=== PATIENT | female | born 2000 | race Hispanic/Latino ===

== ENCOUNTER 2023-05-20 13:39 | Emergency (ER) | payer SELFPAY ==
[2023-05-20] VITALS (10 sets, daily range): BP systolic 120–155; BP diastolic 64–93; PULSE 69–100; RESP 14–18; TEMP 36.6–36.7; O2SAT 92–98; BMI 38.0
[2023-05-20] MEDS: Ondansetron 4 MG/2 ML Vial IV (14:32)
[2023-05-20] MEDS: fentaNYL 100 MCG/2 ML Ampul 50 MCG IV (14:33)
[2023-05-20 14:51] LABS: Absolute Neutrophil Count 11.2 X10^3/uL (2.0-7.7); Basophil# 0.02 X10^3/uL; Basophil% 0.2 % (0-1); Hematocrit 35.9 % (37-47); Hemoglobin 10.6 g/dL (12.0-15.0); Lymphocyte % 5.7 % (19-41); Mean Corp Hgb Conc 29.5 g/dL (32-36); Mean Corpuscular Hgb 24.3 pg (27.0-32.0); Mean Corpuscular Volume 82.3 fL (81-99); Mean Platelet Vol. 12.8 fl (6.2-12.0); Monocyte# 0.28 X10^3/uL; Monocyte% 2.3 % (0-10); NRBC Flagged by Analyzer 0 % (0-5); Neutrophil # 11.23 X10^3/uL (2.7-7.7); Neutrophil % 91.2 % (47-70); Platelet Count 203 K/mm3 (150-450); RBC Distribution Width CV 16.7 % (11.6-14.6); RBC Distribution Width SD 50.1 fl (35.1-43.9); Red Blood Count 4.36 M/mm3 (4.2-5.4); White Blood Count 12.3 K/mm3 (4.4-11.0)
[2023-05-20] MEDS: Clindamycin 600 MG/50 ML BAG 100 MG IV (14:55)
[2023-05-20 15:02] LABS: Anion Gap 7 (5-15); BUN 9 mg/dL (7-18); BUN/Creat Ratio 9.7 RATIO (10-20); Calcium,Total 9.4 mg/dL (8.5-10.1); Chloride 105 mmol/L (98-107); Creatinine, Serum 0.92 mg/dL (0.55-1.02); EST Glomerular Filtration Rate 79 mL/min (>60); Est Glom Filt Rate - Afr Amer 95 mL/min (>60); Estimated Creatinine Clearance 81.42 ml/min; Glucose 159 mg/dL (74-106); Potassium 4.4 mmol/L (3.5-5.1); Sodium Level 136 mmol/L (136-145)
[2023-05-20] MEDS: HYDROmorphone 1 MG/ML Syringe IV ×4 (15:05→19:43)
[2023-05-20 15:12] LABS: Internal QC Validated? YES +Cl - CLEAR BKGD; Pregnancy, Serum, hCG Quali. NEGATIVE Negative
--- NOTE | 2023-05-20 15:35 | ED.VIS.FEGU ---
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 challenging to visualize all parts of the vaginal canal, especially the cervix and cul-de-sacs which were not able to be visualized even with placing the speculum to its hub and using assistance from the LABORATORY MECHANIC HELPER as well as the ring forceps in order to try to push tissue around to enhance visualization. There is no blood and no vaginal wall injury throughout the areas that we could inspect. Furthermore, a bimanual exam was performed with 1 hand and the anus and one in the vagina which we discussed with the patient prior to sedation, given the recommendation from Dr. Bowman to perform this exam to evaluate for the possibility of a communication through these areas. There is no communication. Furthermore there is no blood in either orifice, nor evidence of any stool in the vaginal vault as the patient described. After the CT was performed after this procedure, showing another residual foreign body, the patient consented to another procedure as recommended by Dr. Bowman in order to try to remove the last piece of glass. We inserted a 24 [place] Knowles into the vaginal canal, as far as it would go, and then irrigated out with sterile water, 60 cc x 2. She did not require sedation for this. There was maybe a very small piece of glass but the shards seen on CT were not removed. I again ensured that the catheter was pushed all the way to the cul-de-sac, I inflated the balloon of the Knowles with 10 cc of water, and then gently removed the Knowles catheter from the vaginal canal. There is no bleeding, no blood on the catheter whatsoever, but it did not remove the foreign body of interest. We then performed a speculum exam and I was able to see the shard of glass matching the glass seen in the vaginal canal on the CT, it was 2 pieces of glass that were stuck together, and these were gently removed with ring forceps without any trauma, tearing, bleeding, or discomfort. The patient tolerated this very well and it was uncomplicated otherwise. She refused to return to CT for reexamination to ensure all of the foreign material was removed, she understands that it is clear and very difficult to see. Discharge Plan Triage Chief Complaint: Female C/O ED Midlevel Provider: Aditya Petersen ED Provider: Bart Langley Dx/Rx/DC Orders Clinical Impression: Vaginal foreign body, Rectal bleeding Instructions: ED FOREIGN BODY Vaginal Adult Prescriptions: New divalproex [Depakote] 500 mg tablet,delayed release (DR/EC) 1,000 mg PO TID 30 Days Qty: 180 0RF Continued insulin lispro [Humalog KwikPen Insulin] 100 unit/mL insulin pen 10 unit subcut TID Qty: 15 0RF insulin glargine [Lantus Solostar U-100 Insulin] 100 unit/mL (3 mL) insulin pen 10 unit subcut BID Qty: 15 0RF Primary Care Provider: Care Physician,No Primary Referrals: Jhoan Bowman MD [Med Staff - Active Staff] - As soon as possible NOT,DEFINED [Non-Staff] - Disposition Disposition: Home, Self Care Discharge Date/Time: 05/20/23 20:41
[2023-05-20] MEDS: Propofol 200 MG/20 ML Vial IV BOLUS (17:00)
--- NOTE | 2023-05-20 17:07 | CT_ITS ---
We are attempting to reach an attending provider to discuss findings. An addendum with communication details will be sent when the communication is complete. STUDY: CT PELVIS WITHOUT CONTRAST REASON FOR EXAM: Female, 22 years old. vag FB, rectal bleeding -- without cont, and w/ rectal only. REMOVED FULL LIGHTBULB FROM VAGINA AND SOME PIECES OF BROKEN GLASS TECHNIQUE: Transaxial imaging of the pelvis was performed without oral contrast, and without intravenous administration of contrast material. Individualized dose optimization techniques were used for this CT. COMPARISON: None. FINDINGS: There is a curved piece of glass measuring 23 x 13mm in the left side of the vagina. Normal visualized small intestine. Normal visualized colon.The urinary bladder is distended. This can suggest urinary retention. There is no pelvic fluid. There is no pelvic mass lesion or lymphadenopathy. Normal visualized uterus. Normal visualized pelvic arteries. Umbilical hernia containing fat. Normal osseous structures. CT/Pelvis without IV Contrast IMPRESSION: There is a curved piece of glass measuring 23 x 13mm in the left side of the vagina. The urinary bladder is distended. This can suggest urinary retention. Non standard communication findings protocol was initiated. 05/20/2023 6:46 PM Electronically Signed: Klever Hensley MD at 18:47 EDT ,
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
--- NOTE | 2023-05-20 17:38 | ED.RN ---
when pt woke from the sedation pt was disoriented trying to pull off monitors and leave was under impression dr doesnt believe she is still hurting and wont trate her pain. dr hein came in explained that plan of care with pain meds and CT. pt upset that dr is accusing her of seeking meds. this nurse re explains plan of care and what dr was explaining to pt. pt verbalizes understanding and apologizing for misunderstanding. de
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
--- NOTE | 2023-05-20 19:47 | ED.RN ---
pt declining SANE evaluation at this time. requesting to take the foreign bodys retrieved from her vagina with her. placed in brown paper bag sealed with evidence tap so that she can take it. pt understands chain of custody issues does not want to report it o r turn it into police at this time.
--- NOTE | 2023-05-20 19:49 | ED.RN ---
raf mora from [employer] present and assisting pt with food, emotional support and transportation.
== END 2023-05-20 20:41 | disposition home or self-care (01) ==
PROVIDERS: Emergency Provider Emergency Medicine; Visit Provider Emergency Medicine
DX: T19.2XXA Foreign body in vulva and vagina, initial encounter (principal); K62.5 Hemorrhage of anus and rectum; X58.XXXA Exposure to other specified factors, initial encounter
CPT/HCPCS: 72192; 80048; 84703; 85025; 96365; 96366; 96375; 96376; 99152; 99284; J7050; A4216; J2405